=== PATIENT | female | born 1990 | race Caucasian/White ===

== ENCOUNTER → 2018-10-04 | Outpatient (CLI) | payer OTHER | END | disposition home or self-care (01) | LOC: RX STUDY 07-17 10:15 → EDBD 11:15 → RX STUDY 11:15 | DX: N70.11 Chronic salpingitis (principal); N97.8 Female infertility of other origin ==

== ENCOUNTER 2018-10-05 23:35 | Inpatient (IN) | payer OTHER ==
[~2018-10-05] VITALS: Ht 157.5 cm; Wt 54.4 kg
[2018-10-10] MEDS ORDERED: Vibramycin PO (09:07)
== END 2018-10-10 11:24 | disposition home or self-care (01) | DRG 759 ==
LOC: ER 23:35 → OB/GYN 10-06 08:16
PROVIDERS: ADMIT Obstetrics & Gynecology
PROC: BW4GZZZ Ultrasonography of Pelvic Region (ICD-10-PCS; principal; 2018-10-06)
DX: N70.11 Chronic salpingitis (principal); R10.2 Pelvic and perineal pain